=== PATIENT | male | born 1950 ===

== ENCOUNTER 2017-05-15 06:49 | Day surgery (SDC) | payer OTHER ==
[2017-05-15 07:09] VITALS: BMI 18.2
[2017-05-15 07:17] VITALS: O2SAT 100
[2017-05-15] MEDS ORDERED: Propofol 10 mg/ml Inj (20 ML) ONE (08:37)
[2017-05-15] MEDS ORDERED: Lactated Ringer's 500 ML IV SCH (08:45)
[2017-05-15] MEDS ORDERED: Lactated Ringer's 500 ML IV ONE (08:55)
[2017-05-15 09:10] VITALS: TEMP 98.1
[2017-05-15 10:03] VITALS: BP 118/66; PULSE 55; RESP 14
== END 2017-05-15 10:00 | disposition home or self-care (01) ==
LOC: C.ENDO 06:49
PROVIDERS: ATTEND Internal Medicine
DX: R10.84 Generalized abdominal pain (principal); K29.70 Gastritis, unspecified, without bleeding
CPT/HCPCS: 43239; 88305; 88312; 88313; 88342; J2704; J7120